=== PATIENT | female | born 1985 | race Caucasian/White ===

== ENCOUNTER → 2017-01-24 | Outpatient (CLI) | payer OTHER ==
--- NOTE | 2017-01-24 09:27 | US ---
EXAMINATION TYPE: US pelvic complete DATE OF EXAM: 01/24/2017 7:28 AM COMPARISON: NONE CLINICAL HISTORY: 31-year-old female with chronic Pelvic Pain R10.2. Intermittent pelvic cramping x 1 year, abnormal cycles, 3, para 3, history of 2 c-sections and tubal ligation Date of LMP: 01/18/2017 TECHNIQUE: Multiple transabdominal sonographic images of the pelvis are obtained. FINDINGS: Uterus: Anteverted measuring 9.0 x 4.3 x 5.2 cm Endometrial Stripe: 0.4 cm, within normal limits. Right Ovary: 3.0 x 2.4 x 1.9 cm for a volume of 7.2 mL. Follicular change is present. Left Ovary: 2.1 x 1.7 x 1.8 cm for a volume of 3.4 mL. Follicular change is present. No evident adnexal abnormality. Small amount of cul-de-sac free fluid likely physiologic. IMPRESSION: Normal follicular change in the ovaries. Small amount of cul-de-sac free fluid likely physiologic.
--- NOTE | 2017-01-24 10:02 | US ---
EXAMINATION TYPE: US abdomen complete DATE OF EXAM: 01/24/2017 7:44 AM COMPARISON: NONE CLINICAL HISTORY: 31-year-old female with chronic Pelvic Pain R10.2. Intermittent pelvic cramping x 1 year. TECHNIQUE: Multiple sonographic images of the abdomen are obtained. FINDINGS: Liver Length: 16.4 cm Gallbladder Wall: 0.2 cm CBD: 0.5 cm Spleen: 12.1 cm Right Kidney: 10.1 x 4.1 x 5.2 cm Left Kidney: 10.9 x 4.3 x 5.3 cm Pancreas: visualized portions wnl, tail limited by overlying midline bowel gas Liver: wnl Gallbladder: wnl Evidence for sonographic Morales's sign: no CBD: measures at the upper limits of normal at 0.5cm Spleen: wnl Right Kidney: Slight pelvicaliectasis which may be transient. Left Kidney: No hydronephrosis. Inferior pole partially obscured by overlying bowel gas Upper IVC: wnl Abd Aorta: visualized portions wnl, distal portion partially obscured by overlying midline bowel gas IMPRESSION: 1. The bile duct measures at the upper limits of normal at 5 mm. Correlate with alkaline phosphatase and bilirubin levels to exclude the possibility of an early biliary obstruction. 2. Slight pelvocaliectasis involving the right kidney may be transient. If indicated, follow-up ultra sound can ensure resolution.
== END | disposition home or self-care (01) ==
LOC: RADUSWWP 07:12
PROVIDERS: ATTEND Internal Medicine
DX: R10.2 Pelvic and perineal pain (principal)
CPT/HCPCS: 76700; 76856

== ENCOUNTER → 2020-09-14 | Outpatient (CLI) | payer OTHER ==
--- NOTE | 2020-09-14 13:38 | US ---
EXAMINATION TYPE: US pelvic complete DATE OF EXAM: 09/14/2020 COMPARISON: US 01/24/2017 CLINICAL HISTORY: R10.9 PELVIC PAIN,R87.619 ABN PAP. Abnormal pap smear, pelvic pain, history of 2 c- sections TECHNIQUE: . Transabdominal sonographic images of the pelvis were acquired. Date of LMP: 08/20/2020 EXAM MEASUREMENTS: Uterus: 10.1 x 4.0 x 4.8 cm Endometrial Stripe: 1.4 cm Right Ovary: 3.6 x 2.0 x 1.7 cm Left Ovary: 3.0 x 2.7 x 1.2 cm 1. Uterus: Anteverted wnl 2. Endometrium: wnl 3. Right Ovary: wnl 4. Left Ovary: wnl 5. Bilateral Adnexa: wnl 6. Posterior cul-de-sac: wnl Anteverted uterus. Endometrial stripe upper limits of normal for sector of menstrual cycle. No free f luid. Both ovaries identified with peripheral tiny follicles in the left ovary. No concerning adnexal avi s. IMPRESSION: Unremarkable transabdominal pelvic ultrasound study.
== END | disposition home or self-care (01) ==
LOC: RADUSWWP 13:00
PROVIDERS: ATTEND Family Medicine
DX: R10.2 Pelvic and perineal pain (principal); R87.619 Unspecified abnormal cytological findings in specimens from cervix uteri
CPT/HCPCS: 76856

== ENCOUNTER → 2020-09-27 | Outpatient (CLI) | payer OTHER ==
--- NOTE | 2020-09-27 15:13 | CT ---
EXAMINATION TYPE: CT abdomen pelvis wo/w con DATE OF EXAM: 09/27/2020 HISTORY: left flank pain, difficulty urination CT DLP: 632.2mGycm Automated Exposure Control for Dose Reduction was Utilized. CONTRAST: CT scan of the abdomen and pelvis is performed with oral and without and with IV Contrast, patient in jected with 100 mL of Isovue 300. COMPARISON: Ultrasound abdomen January 24, 2017. Pelvic ultrasound 15 days ago. FINDINGS: LUNG BASES: No significant abnormality is appreciated. LIVER/GB: No significant abnormality is appreciated. PANCREAS: No significant abnormality is seen. SPLEEN: No significant abnormality is seen. ADRENALS: No significant abnormality is seen. KIDNEYS: Single 1 to 2 mm nonobstructing calculus lower pole left kidney coronal image 64. Symmetric cortical measuring uptake and excretion on postcontrast images without hydronephrosis seen bilaterall y. No intraluminal calculus in bladder. Single 1.0 cm thin-walled cyst right kidney upper midpole lev el axial image 21 series 9. BOWEL: Oral contrast reaches level of the rectum. No suspicious small or large bowel dilatation. Norm al contrast filled appendix in the right lower quadrant UTERUS/ADNEXA: Anteverted uterus. LYMPH NODES: No greater than 1cm abdominal or pelvic lymph nodes are appreciated. OSSEOUS STRUCTURES: Mild Facet arthropathy in the lower lumbar spine. OTHER: No significant additional abnormality is seen. IMPRESSION: Single 1 to 2 mm nonobstructing left renal calculus. No Hydronephrosis or obstructing ure teral calculi bilaterally.
== END | disposition home or self-care (01) ==
LOC: RADCTMAIN 12:41
PROVIDERS: ATTEND Family Medicine
DX: N20.0 Calculus of kidney (principal)
CPT/HCPCS: 74178; Q9967

== ENCOUNTER → 2020-10-05 | Outpatient (CLI) | payer OTHER ==
--- NOTE | 2020-10-11 12:13 | HM ---
HOLTER MONITOR REPORT Patient was monitored for 48 hours. The baseline rhythm is sinus mechanism with normal conduction. The average rate 77 beats per minute, minimum 48, maximum 170 beats per minute. Ventricular ectopic activity was not present. Supraventricular ectopic activity was present in the form of rare single PACs. No diary was available. No atrial fibrillation was noted. CONCLUSION: 1. Sinus mechanism baseline rhythm. 2. No ventricular ectopic activity. 3. Rare supraventricular ectopic activity. 4. No diary was available. MMODL / IJN: [id number] /
--- NOTE | 2020-10-25 13:25 | ECHOF ---
Referral Reason:R55 Syncope MEASUREMENTS -------- HEIGHT: 157.5 cm WEIGHT: 57.2 kg BP: IVSd: 1.1 cm (0.6 - 1.1) LVIDd: 4.0 cm (3.9 - 5.3) LVPWd: 1.1 cm (0.6 - 1.1) IVSs: 1.6 cm LVIDs: 2.9 cm LVPWs: 1.4 cm LAESV Index (A-L): 21.36 ml/m Ao Diam: 3.2 cm (2.0 - 3.7) AV Cusp: 1.7 cm (1.5 - 2.6) LA Diam: 2.5 cm (2.7 - 3.8) MV EXCURSION: 24.989 mm (> 18.000) MV EF SLOPE: 236 mm/s (70 - 150) EPSS: 1.9 cm MV E Ezio: 0.71 m/s MV DecT: 197 ms MV A Ezio: 0.43 m/s MV E/A Ratio: 1.66 RAP: 5.00 mmHg RVSP: 29.49 mmHg FINDINGS -------- This was a technically good study. The left ventricular size is normal. Left ventricular wall thickness is normal. Overall left vent ricular systolic function is normal with, an EF between 55 - 60 %. The diastolic filling pattern is normal for the age of the patient 4.78. The right ventricle is normal in size. The left atrial size is normal. Normal LA size by volume 22+/-6 ml/m2. The right atrial size is normal. The aortic valve is trileaflet and appears structurally normal. The mitral valve is normal. Mild mitral regurgitation is present. The tricuspid valve appears structurally normal. Mild tricuspid regurgitation present. Right vent ricular systolic pressure is normal at < 35 mmHg. There is no pulmonic regurgitation present. The aortic root size is normal. Normal inferior vena cava with normal inspiratory collapse consistent with estimated right atrial pre ssure of 5 mmHg. There is no pericardial effusion. CONCLUSIONS -------- 1. The left ventricular size is normal. 2. Left ventricular wall thickness is normal. 3. Overall left ventricular systolic function is normal with, an EF between 55 - 60 %. 4. The diastolic filling pattern is normal for the age of the patient 4.78 5. Mild mitral regurgitation is present. 6. Mild tricuspid regurgitation present. 7. There is no pericardial effusion. PERSONALIZATION SPECIALIST: Nanci Macario RDCS
== END | disposition home or self-care (01) ==
LOC: RADECHMAIN 11:24
PROVIDERS: ATTEND Family Medicine
DX: I08.1 Rheumatic disorders of both mitral and tricuspid valves (principal)
CPT/HCPCS: 93225; 93226; 93306

== ENCOUNTER → 2021-01-24 | Outpatient (CLI) | payer OTHER ==
--- NOTE | 2021-01-26 14:05 | XR ---
EXAMINATION TYPE: XR ankle complete LT DATE OF EXAM: 01/24/2021 CLINICAL HISTORY: Left ankle pain, sprain TECHNIQUE: Frontal, lateral and oblique images of the left ankle are obtained. COMPARISON: 06/05/2020 FINDINGS: There is no acute fracture/dislocation evident in the left ankle. The ankle mortise appea rs within normal limits. Mild overlying soft tissue swelling. Os trigonum. IMPRESSION: There is no acute fracture or dislocation in the left ankle. Mild overlying soft tissue swelling
== END | disposition home or self-care (01) ==
LOC: RADXRMAIN 09:57
PROVIDERS: ATTEND Nurse Practitioner Family
DX: M25.572 Pain in left ankle and joints of left foot (principal); M79.89 Other specified soft tissue disorders